=== PATIENT | male | born 1995 | race Caucasian/White ===

== ENCOUNTER 2019-10-19 13:04 | Emergency (ER) | payer BC ==
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
== END 2019-10-19 14:31 | disposition home or self-care (01) ==
LOC: MW.ED 13:04
DX: S93.402A Sprain of unspecified ligament of left ankle, initial encounter (principal); S80.12XA Contusion of left lower leg, initial encounter; F90.9 Attention-deficit hyperactivity disorder, unspecified type; F17.210 Nicotine dependence, cigarettes, uncomplicated; Z79.899 Other long term (current) drug therapy; W22.8XXA Striking against or struck by other objects, initial encounter
CPT/HCPCS: 73590-26-LT; 73590-LT; 73610-26-LT; 73610-LT; 99283; 99283-25

== ENCOUNTER 2020-07-15 18:51 | Emergency (ER) | payer BC ==
[2020-07-15] MEDS ORDERED: LORazepam 2 MG/ML SDV IVPUSH ONE ×2 (19:12→21:17)
[2020-07-15] MEDS ORDERED: Sodium Chloride 0.9% 10 ML Syringe FLUSH PRN (19:12)
[2020-07-15] MEDS ORDERED: Sodium Chloride 0.9% 2.5 ML Syringe FLUSH PRN (19:12)
[2020-07-15] MEDS ORDERED: Sodium Chloride 0.9% 1,000 ML IV ONE ×2 (19:12→20:21)
--- NOTE | 2020-07-15 19:17 | EDM.PDOC ---
ED HPI GENERAL MEDICAL PROBLEM - General Chief Complaint: Neuro Symptoms/Deficits Stated Complaint: POSSIBLE SEIZURE Time Seen by Provider: 07/15/20 18:57 Source of Information: Reports: Patient History Limitations: Reports: No Limitations - History of Present Illness INITIAL COMMENTS - FREE TEXT/NARRATIVE: 25-year-old male no past medical history presents for concern for alcohol withdrawal. Patient notes that he drinks most every day and has been drinking a lot more recently. He also endorses that he has a prescription for Adderall which he admittedly abuses to drink more. He states that he blacked out today and he is concerned may be had a seizure. He states that his last drink was last night. He does not recall the events of today and his last memory is being on the phone with his mother last night. He is concerned for his safety and wanting substance abuse treatment. He denies any headache, body pains, chest pain, difficulty breathing. He does not have a history of alcohol withdrawal seizures. - Related Data Allergies Allergy/AdvReac Type Severity Reaction Status Date / Time No Known Allergies Allergy Verified 07/15/20 18:58 Home Meds: Home Meds Dextroamphetamine/Amphetamine [Adderall] 60 mg PO DAILY 10/19/19 [History] Diclofenac Sodium [Voltaren] 75 mg PO BIDMEALS PRN #30 tab.cr 10/19/19 [Rx] LORazepam [Ativan] 2 mg PO ASDIRECTED 10/19/19 [History] Disulfiram [Antabuse] 250 mg PO DAILY 30 Days #30 tab 07/15/20 [Rx] chlordiazePOXIDE [Librium] 25 mg PO ASDIRECTED 4 Days #15 cap 07/15/20 [Rx] Past Medical History HEENT History: Reports: None Cardiovascular History: Reports: None Respiratory History: Reports: None Gastrointestinal History: Reports: None Genitourinary History: Reports: None Musculoskeletal History: Reports: None Neurological History: Reports: None Psychiatric History: Reports: ADHD Endocrine/Metabolic History: Reports: None Hematologic History: Reports: None Immunologic History: Reports: None Oncologic (Cancer) History: Reports: None Dermatologic History: Reports: None - Infectious Disease History Infectious Disease History: Reports: None - Past Surgical History Head Surgeries/Procedures: Reports: None HEENT Surgical History: Reports: None Cardiovascular Surgical History: Reports: None Respiratory Surgical History: Reports: None GI Surgical History: Reports: None Male Surgical History: Reports: None Endocrine Surgical History: Reports: None Neurological Surgical History: Reports: None Musculoskeletal Surgical History: Reports: None Oncologic Surgical History: Reports: None Dermatological Surgical History: Reports: None Social & Family History - Family History Family Medical History: No Pertinent Family History - Caffeine Use Caffeine Use: Reports: None - Recreational Drug Use Recreational Drug Use: No ED ROS GENERAL - Review of Systems Review Of Systems: Comprehensive ROS is negative, except as noted in HPI. ED EXAM, GENERAL - Physical Exam Exam: See Below Exam Limited By: No Limitations General Appearance: Alert, WD/WN, No Apparent Distress Eye Exam: Bilateral Eye: PERRL Nose: Normal Inspection Throat/Mouth: Normal Voice, No Airway Compromise Head: Atraumatic, Normocephalic Neck: Normal Inspection, Non-Tender Respiratory/Chest: No Respiratory Distress, Lungs Clear, Normal Breath Sounds, No Accessory Muscle Use Cardiovascular: Normal Peripheral Pulses, Tachycardia GI/Abdominal: Soft, Non-Tender Extremities: Normal Inspection Neurological: Alert, Oriented, CN II-XII Intact, Normal Cognition, No Motor/Sensory Deficits Psychiatric: Anxious, Tearful Skin Exam: Warm, Dry, Intact #1 Interpretation EKG Date: 07/15/20 Time: 19:17 Rhythm: Other (sinus tachycardia) Rate (Beats/Min): 105 [place]: Normal P-Wave: Present QRS: Normal ST-T: Normal QT: Normal WI/PQ Interval: 138 Comparison: NA - No Prior EKG EKG Interpretation Comments: normal EKG Course - Vital Signs Last Recorded V/S: Last Vital Signs Temp 97.5 F 07/15/20 18:59 Pulse 102 H 07/15/20 20:11 Resp 18 07/15/20 20:11 BP 141/95 H 07/15/20 20:11 Pulse Ox 99 07/15/20 20:11 - Orders/Labs/Meds Orders: Active Orders 24 hr Category Date Time Status EKG Documentation Completion [RC] STAT Care 07/15/20 19:12 Active REFLEX LACTIC ACID YES OR NO [CHEM] Routine Lab 07/15/20 20:12 Received Sodium Chloride 0.9% [Saline Flush] Med 07/15/20 19:12 Active 10 ml FLUSH ASDIRECTED PRN Sodium Chloride 0.9% [Saline Flush] Med 07/15/20 19:12 Active 2.5 ml FLUSH ASDIRECTED PRN Saline Lock Insert [OM.PC] Stat Oth 07/15/20 19:12 Ordered Medication Orders Sodium Chloride (Sodium Chloride 0.9% 10 Ml Syringe) 10 ml FLUSH ASDIRECTED PRN PRN Reason: Keep Vein Open Last Admin: 07/15/20 19:33 Dose: 10 ml Documented by: AMOL Sodium Chloride (Sodium Chloride 0.9% 2.5 Ml Syringe) 2.5 ml FLUSH ASDIRECTED PRN PRN Reason: Keep Vein Open Last Admin: 07/15/20 19:34 Dose: 2.5 ml Documented by: AMOL Labs: Laboratory Tests 07/15/20 07/15/20 07/15/20 Range/Units 19:15 19:15 19:26 WBC 8.74 (4.0-11.0) K/uL RBC 4.96 (4.50-5.90) M/uL Hgb 16.4 (13.0-17.0) g/dL Hct 46.1 (38.0-50.0) % MCV 92.9 (80.0-98.0) fL MCH 33.1 H (27.0-32.0) pg MCHC 35.6 (31.0-37.0) g/dL RDW Std Deviation 42.2 (28.0-62.0) fl RDW Coeff of Pedro 12 (11.0-15.0) % Plt Count 274 (150-400) K/uL MPV 10.40 (7.40-12.00) fL Neut % (Auto) 49.8 (48.0-80.0) % Lymph % (Auto) 39.7 (16.0-40.0) % [place] % (Auto) 9.6 (0.0-15.0) % Eos % (Auto) 0.7 (0.0-7.0) % Baso % (Auto) 0.2 (0.0-1.5) % Neut # (Auto) 4.4 (1.4-5.7) K/uL Lymph # (Auto) 3.5 H (0.6-2.4) K/uL [place] # (Auto) 0.8 (0.0-0.8) K/uL Eos # (Auto) 0.1 (0.0-0.7) K/uL Baso # (Auto) 0.0 (0.0-0.1) K/uL Nucleated RBC % 0.0 /100WBC Nucleated RBCs # 0 K/uL INR 1.02 APTT 25.0 (18.6-31.3) SEC Sodium 136 (136-148) mmol/L Potassium 3.3 L (3.5-5.1) mmol/L Chloride 99 (98-107) mmol/L Carbon Dioxide 24.3 (21.0-32.0) mmol/L BUN 6 L (7.0-18.0) mg/dL Creatinine 1.1 (0.8-1.3) mg/dL Est Cr Clr Drug Dosing 110.29 mL/min Estimated GFR (MDRD) > 60.0 ml/min Glucose 97 (74-106) mg/dL Lactic Acid (0.4-2.0) mmol/L Calcium 9.2 (8.5-10.1) mg/dL Magnesium 2.0 (1.8-2.4) mg/dL Total Bilirubin 0.7 (0.2-1.0) mg/dL AST 36 (15-37) IU/L ALT 64 H (14-63) IU/L Alkaline Phosphatase 107 (46-116) U/L Creatine Kinase 163 (26-308) U/L Total Protein 8.4 H (6.4-8.2) g/dL Albumin 4.3 (3.4-5.0) g/dL Globulin 4.1 H (2.6-4.0) g/dL Albumin/Globulin Ratio 1.1 (0.9-1.6) Lipase 125 (73-393) U/L Urine Color Urine Appearance Urine pH (5.0-8.0) Ur Specific [place] (1.001-1.035) Urine Protein (NEGATIVE) mg/dL Urine Glucose (UA) (NEGATIVE) mg/dL Urine Ketones (NEGATIVE) mg/dL Urine Occult Blood (NEGATIVE) Urine Nitrite (NEGATIVE) Urine Bilirubin (NEGATIVE) Urine Urobilinogen (<2.0) EU/dL Ur Leukocyte Esterase (NEGATIVE) Urine RBC (0-2/HPF) Urine WBC (0-5/HPF) Ur Epithelial Cells (NONE-FEW) Urine Bacteria (NEGATIVE) Urine Mucus (NONE-MOD) Urine Opiates Screen (NEGATIVE) Ur Oxycodone Screen (NEGATIVE) Urine Methadone Screen (NEGATIVE) Ur Barbiturates Screen (NEGATIVE) Ur Phencyclidine Scrn (NEGATIVE) Ur Amphetamine Screen (NEGATIVE) U Methamphetamines Scrn (NEGATIVE) U Benzodiazepines Scrn (NEGATIVE) U Cocaine Metab Screen (NEGATIVE) U Marijuana (THC) Screen (NEGATIVE) Ethyl Alcohol 73 mg/dL SARS-CoV-2 RNA (IVONNE) (NEGATIVE) 07/15/20 07/15/20 07/15/20 Range/Units 19:36 20:15 20:55 WBC (4.0-11.0) K/uL RBC (4.50-5.90) M/uL Hgb (13.0-17.0) g/dL Hct (38.0-50.0) % MCV (80.0-98.0) fL MCH (27.0-32.0) pg MCHC (31.0-37.0) g/dL RDW Std Deviation (28.0-62.0) fl RDW Coeff of Pedro (11.0-15.0) % Plt Count (150-400) K/uL MPV (7.40-12.00) fL Neut % (Auto) (48.0-80.0) % Lymph % (Auto) (16.0-40.0) % [place] % (Auto) (0.0-15.0) % Eos % (Auto) (0.0-7.0) % Baso % (Auto) (0.0-1.5) % Neut # (Auto) (1.4-5.7) K/uL Lymph # (Auto) (0.6-2.4) K/uL [place] # (Auto) (0.0-0.8) K/uL Eos # (Auto) (0.0-0.7) K/uL Baso # (Auto) (0.0-0.1) K/uL Nucleated RBC % /100WBC Nucleated RBCs # K/uL INR APTT (18.6-31.3) SEC Sodium (136-148) mmol/L Potassium (3.5-5.1) mmol/L Chloride (98-107) mmol/L Carbon Dioxide (21.0-32.0) mmol/L BUN (7.0-18.0) mg/dL Creatinine (0.8-1.3) mg/dL Est Cr Clr Drug Dosing mL/min Estimated GFR (MDRD) ml/min Glucose (74-106) mg/dL Lactic Acid 3.1 H* (0.4-2.0) mmol/L Calcium (8.5-10.1) mg/dL Magnesium (1.8-2.4) mg/dL Total Bilirubin (0.2-1.0) mg/dL AST (15-37) IU/L ALT (14-63) IU/L Alkaline Phosphatase (46-116) U/L Creatine Kinase (26-308) U/L Total Protein (6.4-8.2) g/dL Albumin (3.4-5.0) g/dL Globulin (2.6-4.0) g/dL Albumin/Globulin Ratio (0.9-1.6) Lipase (73-393) U/L Urine Color YELLOW Urine Appearance CLEAR Urine pH 6.5 (5.0-8.0) Ur Specific [place] 1.015 (1.001-1.035) Urine Protein NEGATIVE (NEGATIVE) mg/dL Urine Glucose (UA) NEGATIVE (NEGATIVE) mg/dL Urine Ketones NEGATIVE (NEGATIVE) mg/dL Urine Occult Blood SMALL H (NEGATIVE) Urine Nitrite NEGATIVE (NEGATIVE) Urine Bilirubin NEGATIVE (NEGATIVE) Urine Urobilinogen 0.2 (<2.0) EU/dL Ur Leukocyte Esterase NEGATIVE (NEGATIVE) Urine RBC NONE SEEN (0-2/HPF) Urine WBC 0-1 (0-5/HPF) Ur Epithelial Cells RARE (NONE-FEW) Urine Bacteria FEW (NEGATIVE) Urine Mucus LIGHT (NONE-MOD) Urine Opiates Screen (NEGATIVE) Ur Oxycodone Screen (NEGATIVE) Urine Methadone Screen (NEGATIVE) Ur Barbiturates Screen (NEGATIVE) Ur Phencyclidine Scrn (NEGATIVE) Ur Amphetamine Screen (NEGATIVE) U Methamphetamines Scrn (NEGATIVE) U Benzodiazepines Scrn (NEGATIVE) U Cocaine Metab Screen (NEGATIVE) U Marijuana (THC) Screen (NEGATIVE) Ethyl Alcohol mg/dL SARS-CoV-2 RNA (IVONNE) NEGATIVE (NEGATIVE) 07/15/20 Range/Units 20:55 WBC (4.0-11.0) K/uL RBC (4.50-5.90) M/uL Hgb (13.0-17.0) g/dL Hct (38.0-50.0) % MCV (80.0-98.0) fL MCH (27.0-32.0) pg MCHC (31.0-37.0) g/dL RDW Std Deviation (28.0-62.0) fl RDW Coeff of Pedro (11.0-15.0) % Plt Count (150-400) K/uL MPV (7.40-12.00) fL Neut % (Auto) (48.0-80.0) % Lymph % (Auto) (16.0-40.0) % [place] % (Auto) (0.0-15.0) % Eos % (Auto) (0.0-7.0) % Baso % (Auto) (0.0-1.5) % Neut # (Auto) (1.4-5.7) K/uL Lymph # (Auto) (0.6-2.4) K/uL [place] # (Auto) (0.0-0.8) K/uL Eos # (Auto) (0.0-0.7) K/uL Baso # (Auto) (0.0-0.1) K/uL Nucleated RBC % /100WBC Nucleated RBCs # K/uL INR APTT (18.6-31.3) SEC Sodium (136-148) mmol/L Potassium (3.5-5.1) mmol/L Chloride (98-107) mmol/L Carbon Dioxide (21.0-32.0) mmol/L BUN (7.0-18.0) mg/dL Creatinine (0.8-1.3) mg/dL Est Cr Clr Drug Dosing mL/min Estimated GFR (MDRD) ml/min Glucose (74-106) mg/dL Lactic Acid (0.4-2.0) mmol/L Calcium (8.5-10.1) mg/dL Magnesium (1.8-2.4) mg/dL Total Bilirubin (0.2-1.0) mg/dL AST (15-37) IU/L ALT (14-63) IU/L Alkaline Phosphatase (46-116) U/L Creatine Kinase (26-308) U/L Total Protein (6.4-8.2) g/dL Albumin (3.4-5.0) g/dL Globulin (2.6-4.0) g/dL Albumin/Globulin Ratio (0.9-1.6) Lipase (73-393) U/L Urine Color Urine Appearance Urine pH (5.0-8.0) Ur Specific [place] (1.001-1.035) Urine Protein (NEGATIVE) mg/dL Urine Glucose (UA) (NEGATIVE) mg/dL Urine Ketones (NEGATIVE) mg/dL Urine Occult Blood (NEGATIVE) Urine Nitrite (NEGATIVE) Urine Bilirubin (NEGATIVE) Urine Urobilinogen (<2.0) EU/dL Ur Leukocyte Esterase (NEGATIVE) Urine RBC (0-2/HPF) Urine WBC (0-5/HPF) Ur Epithelial Cells (NONE-FEW) Urine Bacteria (NEGATIVE) Urine Mucus (NONE-MOD) Urine Opiates Screen NEGATIVE (NEGATIVE) Ur Oxycodone Screen NEGATIVE (NEGATIVE) Urine Methadone Screen NEGATIVE (NEGATIVE) Ur Barbiturates Screen NEGATIVE (NEGATIVE) Ur Phencyclidine Scrn NEGATIVE (NEGATIVE) Ur Amphetamine Screen POSITIVE (NEGATIVE) U Methamphetamines Scrn NEGATIVE (NEGATIVE) U Benzodiazepines Scrn NEGATIVE (NEGATIVE) U Cocaine Metab Screen NEGATIVE (NEGATIVE) U Marijuana (THC) Screen NEGATIVE (NEGATIVE) Ethyl Alcohol mg/dL SARS-CoV-2 RNA (IVONNE) (NEGATIVE) Meds: Medications Generic Name Dose Route Start Last Admin Trade Name Freq PRN Reason Stop Dose Admin Sodium Chloride 10 ml 07/15/20 19:12 07/15/20 19:33 Sodium Chloride 0.9% 10 Ml Syringe FLUSH 10 ml ASDIRECTED PRN Administration Keep Vein Open Sodium Chloride 2.5 ml 07/15/20 19:12 07/15/20 19:34 Sodium Chloride 0.9% 2.5 Ml Syringe FLUSH 2.5 ml ASDIRECTED PRN Administration Keep Vein Open Discontinued Medications Generic Name Dose Route Start Last Admin Trade Name Freq PRN Reason Stop Dose Admin Chlordiazepoxide HCl 75 mg 07/15/20 21:17 Chlordiazepoxide 25 Mg Cap PO 07/15/20 21:18 ONETIME ONE Sodium Chloride 1,000 mls @ 999 mls/hr 07/15/20 19:12 07/15/20 19:34 Normal Saline IV 07/15/20 20:12 999 mls/hr .Bolus ONE Administration Sodium Chloride 1,000 mls @ 999 mls/hr 07/15/20 20:21 07/15/20 20:38 Normal Saline IV 07/15/20 21:21 999 mls/hr .Bolus ONE Administration Lorazepam 1 mg 07/15/20 19:12 07/15/20 19:33 Lorazepam 2 Mg/Ml Sdv IVPUSH 07/15/20 19:13 1 mg ONETIME ONE Administration Lorazepam 1 mg 07/15/20 21:17 Lorazepam 2 Mg/Ml Sdv IVPUSH 07/15/20 21:18 ONETIME ONE - Re-Assessments/Exams Free Text/Narrative Re-Assessment/Exam: 07/15/20 19:16 We will get labs, EKG, head CT. Will treat symptomatically with IV fluid bolus and Ativan. We will follow up results and disposition accordingly. [place] on arrival is 5 07/15/20 20:46 Patient notes he is feeling better after Ativan. His labs are grossly unremarkable aside from mild hypokalemia to 3.3 and an elevated lactate to 3.1. I do long discussion with patient regarding inpatient alcohol treatment versus outpatient treatment. At this time he states he would rather pursue outpatient treatment options. Will continue IV fluid bolus and follow-up urinalysis and urine drug screening for disposition. 07/15/20 21:17 I had a long discussion with patient regarding disposition. He elects at this time to go home and does not want inpatient alcohol treatment. Will send home with prescription for Librium and Antabuse per patient request. Will give patient resources for follow-up. Advised patient that if he does feel like he needs inpatient treatment he is always welcome to come back to the emergency department we can arrange that. CATHY now 3 Departure - Departure Time of Disposition: 21:22 Disposition: Home, Self-Care 01 Condition: Good Clinical Impression: Alcohol withdrawal Qualifiers: Complication of substance-induced condition: uncomplicated Qualified Code(s): F10.230 - Alcohol dependence with withdrawal, uncomplicated - Discharge Information Prescriptions: Disulfiram [Antabuse] 250 mg PO DAILY 30 Days #30 tab chlordiazePOXIDE [Librium] 25 mg PO ASDIRECTED 4 Days #15 cap Instructions: Alcohol Withdrawal Syndrome Referrals: PCP,None [Primary Care Provider] - Forms: ED Department Discharge Additional Instructions: Your symptoms are likely due to alcohol withdrawal. I have prescribed you 2 different medications. One of them is called Librium or chlordiazepoxide which will help with the withdrawal symptoms. It is very important not to drink alcohol on this medication. The other medication is called Antabuse or disulfiram. It is very important not to drink alcohol on this medication as it will cause violent vomiting and abdominal pain. You will need to follow-up with a primary care physician, information is provided below since you are new to [facility] and need to establish care here. If your symptoms worsen or you are having any difficulties at home you are always welcome to come back to the emergency department for reassessment and we can help provide placement for inpatient alcohol withdrawal treatment. The following information is given to patients seen in the emergency department who are being discharged to home. This information is to outline your options for follow-up care. We provide all patients seen in our emergency department with a follow-up referral. The need for follow-up, as well as the timing and circumstances, are variable depending upon the specifics of your emergency department visit. If you don't have a primary care physician on staff, we will provide you with a referral. We always advise you to contact your personal physician following an emergency department visit to inform them of the circumstance of the visit and for follow-up with them and/or the need for any referrals to a consulting specialist. The emergency department will also refer you to a specialist when appropriate. This referral assures that you have the opportunity for follow-up care with a sp ecialist. All of these measure are taken in an effort to provide you with optimal care, which includes your follow-up. Under all circumstances we always encourage you to contact your private physicia n who remains a resource for coordinating your care. When calling for follow-up care, please make the office aware that this follow-up is from your recent emergency room visit. If for any reason you are refused follow-up, please contact the [facility] Emergency Department at and asked to speak to the emergency department charge nurse. Please follow up with your primary care physician. If you do not have a primary care physician, see below: [facility] [address] [place] [id number] [facility] [address] [place] [address] Lisandro Almaraz [facility] [address], [place] [address] Sepsis Event Note (ED) - Evaluation Sepsis Screening Result: No Definite Risk - Focused Exam Vital Signs: Vital Signs Temp Pulse Resp BP Pulse Ox 07/15/20 20:11 102 H 18 141/95 H 99 07/15/20 18:59 97.5 F 116 H 18 154/101 H 99 - My Orders Last 24 Hours: My Active Orders 07/15/20 19:12 EKG Documentation Completion [RC] STAT Sodium Chloride 0.9% [Saline Flush] 10 ml FLUSH ASDIRECTED PRN Sodium Chloride 0.9% [Saline Flush] 2.5 ml FLUSH ASDIRECTED PRN Saline Lock Insert [OM.PC] Stat 07/15/20 20:12 REFLEX LACTIC ACID YES OR NO [CHEM] Routine - Assessment/Plan Last 24 Hours: My Active Orders 07/15/20 19:12 EKG Documentation Completion [RC] STAT Sodium Chloride 0.9% [Saline Flush] 10 ml FLUSH ASDIRECTED PRN Sodium Chloride 0.9% [Saline Flush] 2.5 ml FLUSH ASDIRECTED PRN Saline Lock Insert [OM.PC] Stat 07/15/20 20:12 REFLEX LACTIC ACID YES OR NO [CHEM] Routine
[2020-07-15 19:50] LABS: BLOOD UREA NITROGEN,BUN 6 mg/dL (7.0-18.0); CARBON DIOXIDE,CO2 24.3 mmol/L (21.0-32.0); CHLORIDE,CL 99 mmol/L (98-107); GLUCOSE RANDOM 97 mg/dL (74-106); LIPASE 125 U/L (73-393); POTASSIUM,K 3.3 mmol/L (3.5-5.1); SODIUM,NA 136 mmol/L (136-148)
--- NOTE | 2020-07-15 20:38 | CT ---
HISTORY: Possible seizure. COMPARISON: None. TECHNIQUE: Noncontrast axial images were obtained of the brain. FINDINGS: Romero-white matter differentiation is preserved. No evidence for acute intracranial hemorrhage or infarction. No midline shift or mass effect. The ventricles are nondilated and symmetric. No abnormal intra or extra-axial fluid collection. No midline shift or mass effect. The bony calvaria are intact. Visualized paranasal sinuses and mastoid air cells are clear. IMPRESSION: No acute intracranial pathology. Please note that all CT scans at this facility use dose modulation, iterative reconstruction, and/or weight-based dosing when appropriate to reduce radiation dose to as low as reasonably achievable. Dictated by Mamie Kingsley MD @ 07/15/2020 8:36:[address] Mamie Kingsley @ Jul 15 2020 8:36PM
[2020-07-15] MEDS ORDERED: chlordiazePOXIDE 25 MG Cap PO ONE (21:17)
== END 2020-07-15 22:03 | disposition home or self-care (01) ==
LOC: MW.ED 18:51
DX: F10.230 Alcohol dependence with withdrawal, uncomplicated (principal); Z20.822 Contact with and (suspected) exposure to COVID-19
CPT/HCPCS: 36415; 70450; 80053; 80305; 80307; 81001; 82550; 83605; 83690; 83735; 85025; 85610; 85730; 87635; 93005; 96374; 96376; 99285; A9270; J2060; J7030; 93010; 99284; U0002

== ENCOUNTER 2021-06-05 16:57 | Inpatient (IN) | payer BC ==
[2021-06-05] MEDS ORDERED: Sodium Chloride 0.9% 2.5 ML Syringe FLUSH PRN (17:25)
[2021-06-05] MEDS ORDERED: Sodium Chloride 0.9% 10 ML Syringe FLUSH PRN (17:25)
[2021-06-05] MEDS ORDERED: Sodium Chloride 0.9% 1,000 ML IV ONE (17:25)
[2021-06-05] MEDS ORDERED: Ondansetron 4 MG/2 ML SDV IVPUSH ONE (17:25)
[2021-06-05] MEDS ORDERED: LORazepam 2 MG/ML SDV IVPUSH ONE (17:26)
[2021-06-05 18:16] LABS: ACETAMINOPHEN <2.0 ug/mL; BLOOD UREA NITROGEN,BUN 5 mg/dL (7.0-18.0); CARBON DIOXIDE,CO2 28.7 mmol/L (21.0-32.0); CHLORIDE,CL 99 mmol/L (98-107); GLUCOSE RANDOM 90 mg/dL (74-106); POTASSIUM,K 3.9 mmol/L (3.5-5.1); SODIUM,NA 137 mmol/L (136-148)
[2021-06-05 18:27] LABS: CORONAVIRUS COVID-19 NAA NEGATIVE (NEGATIVE); INFLUENZA A NAA NEGATIVE (NEGATIVE); INFLUENZA B NAA NEGATIVE (NEGATIVE)
[2021-06-05] MEDS ORDERED: chlordiazePOXIDE 10 MG Cap PO ONE (19:02)
[2021-06-05] MEDS ORDERED: Thiamine 200 MG/2 ML MDV IVPUSH ONE (19:02)
[2021-06-05] MEDS ORDERED: Folic Acid 50 MG/10 ML MDV IV STA (19:04)
[2021-06-05] MEDS ORDERED: Sodium Chloride 0.9% 1,000 ML IV SCH (19:15)
[2021-06-05] MEDS ORDERED: chlordiazePOXIDE 25 MG Cap PO ONE (19:30)
[2021-06-05] MEDS ORDERED: Sodium Chloride 0.9% 1,000 ML IV STA (19:39)
[2021-06-05] MEDS ORDERED: Albuterol/Ipratropium 3.0-0.5 MG/3 ML Neb Soln NEB PRN (21:35)
[2021-06-05] MEDS ORDERED: Ondansetron 4 MG/2 ML SDV IVPUSH PRN (21:35)
[2021-06-05] MEDS ORDERED: LORazepam 2 MG/ML SDV IVPUSH PRN (21:38)
[2021-06-05] MEDS: Enoxaparin 40 MG/0.4 ML Syringe SUBCUT SCH (23:12)
[2021-06-06] MEDS: Lactated Ringers 1,000 ML IV SCH ×2 (04:38→12:55)
[2021-06-06 06:40] LABS: BLOOD UREA NITROGEN,BUN 5 mg/dL (7.0-18.0); CARBON DIOXIDE,CO2 27.2 mmol/L (21.0-32.0); CHLORIDE,CL 103 mmol/L (98-107); GLUCOSE RANDOM 81 mg/dL (74-106); POTASSIUM,K 3.8 mmol/L (3.5-5.1); SODIUM,NA 139 mmol/L (136-148)
[2021-06-06] MEDS ORDERED: chlordiazePOXIDE 10 MG Cap PO SCH (08:00)
[2021-06-06] MEDS ORDERED: Thiamine 100 MG in Sodium Chloride 0.9% 100 ML IV SCH (09:00)
[2021-06-06] MEDS ORDERED: Pantoprazole 40 MG in Sodium Chloride 0.9% 10 ML IVPUSH SCH (09:00)
[2021-06-06] MEDS ORDERED: Thiamine 200 MG/2 ML MDV IVPUSH SCH (09:00)
[2021-06-06] MEDS ORDERED: Folic Acid 50 MG/10 ML MDV IV SCH (09:00)
[2021-06-06] MEDS ORDERED: Potassium Chloride 20 MEQ Tab.ER PO ONE (10:12)
[2021-06-06] MEDS: Enoxaparin 40 MG/0.4 ML Syringe SUBCUT SCH (22:05)
[2021-06-06] MEDS ORDERED: Melatonin 3 MG Tab PO SCH (23:01)
[2021-06-07 06:08] LABS: BLOOD UREA NITROGEN,BUN 10 mg/dL (7.0-18.0); CARBON DIOXIDE,CO2 27.7 mmol/L (21.0-32.0); CHLORIDE,CL 103 mmol/L (98-107); GLUCOSE RANDOM 86 mg/dL (74-106); POTASSIUM,K 3.8 mmol/L (3.5-5.1); SODIUM,NA 137 mmol/L (136-148)
[2021-06-07] MEDS ORDERED: Folic Acid 1 MG Tab PO SCH (09:00)
[2021-06-07] MEDS ORDERED: Pantoprazole 40 MG Tab.CR PO SCH (09:00)
[2021-06-07] MEDS ORDERED: Thiamine 100 MG Tab PO SCH (09:00)
== END 2021-06-07 10:25 | disposition home or self-care (01) | DRG 774 ==
LOC: MW.ED 16:57 → MW.ICU 19:00
PROVIDERS: ADMIT Student in an Organized Health Care Education/Training Program; ATTEND Student in an Organized Health Care Education/Training Program
DX: F10.231 Alcohol dependence with withdrawal delirium (principal); Z20.822 Contact with and (suspected) exposure to COVID-19; F14.10 Cocaine abuse, uncomplicated; R56.9 Unspecified convulsions; Z79.899 Other long term (current) drug therapy; Z86.16 Personal history of COVID-19; F17.210 Nicotine dependence, cigarettes, uncomplicated
CPT/HCPCS: 0240U; 36415; 71045; 71045-26; 80048; 80053; 80143; 80179; 80305-QW; 81003; 83735; 84100; 85025; 93005; 93010; 99221; 99231; 99238; 99284; A9270-GY; C9113; J1650; J2060; J2405; J3411; J3490; J7030; J7120

== ENCOUNTER 2022-08-30 23:58 | Emergency (ER) | payer SELFPAY ==
[2022-08-31] MEDS ORDERED: Sodium Chloride 0.9% 1,000 ML IV ONE (00:24)
[2022-08-31] MEDS ORDERED: Sodium Chloride 0.9% 10 ML Syringe FLUSH PRN (00:24)
[2022-08-31] MEDS ORDERED: Sodium Chloride 0.9% 2.5 ML Syringe FLUSH PRN (00:24)
[2022-08-31 00:56] LABS: BASOPHILS PERCENT AUTO 0.4 % (0.0-1.5); EOSINOPHILS ABSOLUTE AUTO 0.2 K/uL (0.0-0.7); EOSINOPHILS PERCENT AUTO 2.6 % (0.0-7.0); HEMATOCRIT 40.6 % (38.0-50.0); HEMOGLOBIN 14.4 g/dL (13.0-17.0); LYMPHOCYTES ABSOLUTE AUTO 3.1 K/uL (0.6-2.4); LYMPHOCYTES PERCENT AUTO 37.8 % (16.0-40.0); MEAN CORPUSCULAR HEMOGLOBIN 33.4 pg (27.0-32.0); MEAN CORPUSCULAR HGB CONC 35.5 g/dL (31.0-37.0); MEAN CORPUSCULAR VOLUME 94.2 fL (80.0-98.0); MONOCYTES PERCENT AUTO 12.5 % (0.0-15.0); NEUTROPHILS ABSOLUTE AUTO 3.8 K/uL (1.4-5.7); NEUTROPHILS PERCENT AUTO 46.7 % (48.0-80.0); NRBC ABSOLUTE 0 K/uL; PLATELET COUNT,PLT 277 K/uL (150-400); RED BLOOD CELL COUNT 4.31 M/uL (4.50-5.90); WHITE BLOOD CELL COUNT,WBC 8.09 K/uL (4.0-11.0)
[2022-08-31 01:49] LABS: A/G RATIO 1.1 (0.9-1.6); ALBUMIN 4.1 g/dL (3.4-5.0); BILIRUBIN TOTAL 0.4 mg/dL (0.2-1.0); CALCIUM 9.5 mg/dL (8.5-10.1); CARBON DIOXIDE,CO2 22.3 mmol/L (21.0-32.0); CREATININE 0.8 mg/dL (0.8-1.3); EST CRCL DRUG DOSING (CG) 149.03 mL/min; MAGNESIUM 2.1 mg/dL (1.8-2.4); POTASSIUM,K 4.7 mmol/L (3.5-5.1); PROTEIN TOTAL,TP 7.8 g/dL (6.4-8.2)
== END 2022-08-31 03:27 | disposition home or self-care (01) ==
LOC: MW.ED 23:58
DX: F07.81 Postconcussional syndrome (principal); Z86.16 Personal history of COVID-19
CPT/HCPCS: 36415; 70450; 80053; 83690; 83735; 85025; 96360; 99284; J3490; J7030; 99283

== ENCOUNTER 2023-04-07 08:17 | Emergency (ER) | payer SELFPAY ==
[2023-04-07] MEDS: LORazepam 2 MG/ML SDV IVPUSH ONE (10:52)
[2023-04-07] MEDS: Lidocaine 1% 5 ML VIAL INJECT ONE (10:52)
== END 2023-04-07 12:07 | disposition home or self-care (01) ==
LOC: MW.ED 08:17
DX: S02.19XA Other fracture of base of skull, initial encounter for closed fracture (principal); S02.2XXA Fracture of nasal bones, initial encounter for closed fracture; S01.511A Laceration without foreign body of lip, initial encounter; Y04.0XXA Assault by unarmed brawl or fight, initial encounter
CPT/HCPCS: 12011; 70450; 70486; 93005; 96374; 99284; J2060; J3490